=== PATIENT | male | born 2000 | race Caucasian/White ===

== ENCOUNTER 2024-03-29 15:26 | Outpatient (OUT) | payer OTHER, SELFPAY ==
--- NOTE | 2024-03-29 | XR_ITS ---
The [address] [address] Patient Name: KACY HECTOR MRN: [id number] date: 2000 Sex: M Assigned Patient Location: MRI Current Patient Location: MRI Accession/Order Number: [id number] Exam Date: 03/29/2024 15:55 Report Date: 03/29/2024 16:10 At the request of: ANDREY MARIO Procedure: XR foreign body eye EXAMINATION: XR foreign body eye HISTORY: Pre MRI COMPARISON: No relevant comparison available. FINDINGS: ORBITS: Negative for a metallic foreign body. OTHER: Negative. XR/XR foreign body eye IMPRESSION: 1. No metallic foreign body within the orbits. Electronically authenticated by: ANDREY BEY Date: 03/29/2024 16:10
--- NOTE | 2024-03-29 15:37 | MR_ITS ---
The [place] [id number] Patient Name: KACY HECTOR MRN: [id number] date: 2000 Sex: M Assigned Patient Location: MRI Current Patient Location: Accession/Order Number: [id number] Exam Date: 03/29/2024 16:15 Report Date: 03/30/2024 09:02 At the request of: ANDREY MARIO Procedure: MR elbow RT wo con MR elbow RT wo con, 03/29/2024 4:15 PM EDT INDICATION: Right elbow pain M25.521, Rupture right distal bicep tendon COMPARISON: Prior ultrasound dated 03/20/2024 TECHNIQUE: Multiplanar and multisequential MR images of the left elbow were obtained without contrast. FINDINGS: Bone: No acute fracture or dislocation is noted. No osseus lesion is noted. Muscle and tendon: There is complete tear of the biceps tendon with retraction to the level of distal arm for approximately 9.3 cm. There is near complete tear of the biceps retinaculum with adjacent soft tissue edema. No definite bicipital radial bursitis. Low-grade muscle tear of the distal biceps. No signal abnormality in the remainder of muscles and tendons is noted. Ligaments: The visualized portions of collateral ligaments are unremarkable. Nerves: There is no abnormality of the visualized portion of the ulnar, radial and median nerves. There is trace intra articular joint effusion. MR/MR elbow RT wo con IMPRESSION: Complete tear of the distal biceps tendon with retraction for approximately 9.3 cm. Electronically authenticated by: AALIYAH FORD Date: 03/30/2024 09:02
== END 2024-03-29 15:27 | disposition home or self-care (01) ==
LOC: MRI 15:31
PROVIDERS: PCP Family Medicine; Visit Provider Orthopaedic Surgery
DX: M25.521 Pain in right elbow (principal); S46.211A Strain of muscle, fascia and tendon of other parts of biceps, right arm, initial encounter
CPT/HCPCS: 70030; 73221